=== PATIENT | female | born 1970 | race Native Hawaiian/Other Pacific Islander ===

== ENCOUNTER → 2017-01-08 | Outpatient (CLI) | payer OTHER | LOC: YCFC.O 12:40 | PROVIDERS: ATTEND Nurse Practitioner Family | DX: J02.9 Acute pharyngitis, unspecified (principal) ==

== ENCOUNTER 2017-01-14 19:57 | Emergency (ER) | payer OTHER ==
[2017-01-14 20:19] VITALS: TEMP 99; O2SAT 100
--- NOTE | 2017-01-14 20:24 | ED.PDOC ---
History of Present Illness - General Chief Complaint: Cardiovascular Problem Stated Complaint: elevated B/P Time Seen by Provider: 01/14/17 20:20 Source: patient Exam Limitations: no limitations - History of Present Illness Initial Comments: 46 YO FEMALE WHO REPORTS SUDDEN ONSET OF TRANSIENT MID STERNAL CHEST PRESSURE THAT BEGAN SHORTLY PRIOR TO ARRIVAL IN THE ED. PT REPORTS THAT SHE HAD NOT HAD HER BP MEDS REFILLED AND SUSPECTED THAT MAY BE THE PROBLEM. PT CAME TO THE HOSPITAL TO HAVE BP CHECKED AND IT WAS FOUND TO BE ELEVATED. PT DENIES CHEST PAIN CURRENTLY AND STATES IT LASTED APPROXIMATELY 1 MINUTE. Timing/Duration: resolved prior to arrival Severity/Quality: moderate, pressure Location: substernal Chest Pain Radiation: no radiation Activities at Onset: none Prior Chest Pain/Cardiac Workup: no prior chest pain, no prior cardiac workup Improving Factors: nothing Worsening Factors: nothing Nitro Today/Relief: no nitro taken today Aspirin Treatment Today: no aspirin today Associated Symptoms: denies symptoms Allergies/Adverse Reactions: Allergies NO KNOWN ALLERGY Allergy (Verified 01/14/17 20:18) Home Medications: Ambulatory Orders Amlodipine Besylate 5 mg PO DAILY 01/14/17 Control Pill 1 each PO DAILY 01/14/17 Calcium 600 mg PO DAILY 01/14/17 Cetirizine HCl [ZyrTEC] 10 mg PO DAILY 01/14/17 Cholecalciferol [Vitamin D3] 1,000 unit PO DAILY 01/14/17 Ferrous Sulfate [Iron] 28 mg PO DAILY 01/14/17 Valatie Carbonate 600 mg PO BID 01/14/17 Naproxen [Naprosyn] 500 mg PO DAILY 01/14/17 Review of Systems - Review of Systems Constitutional: Denies: fever, malaise EENTM: Denies: ear pain, throat pain Respiratory: Denies: short of breath, wheezing Cardiology: States: see HPI, chest pain. Denies: palpitations, syncope Gastrointestinal/Abdominal: Denies: abdominal pain, diarrhea, vomiting Genitourinary: Denies: dysuria, frequency Musculoskeletal: Denies: joint pain, joint swelling Skin: Denies: change in color, dryness Neurological: Denies: numbness, paresthesia Endocrine: States: no symptoms reported Hematologic/Lymphatic: States: no symptoms reported Past Medical History (General) - Patient Medical History Hx Seizures: No Hx Stroke: No Hx Dementia: No Hx Asthma: No Hx of COPD: No Hx Cardiac Disorders: No Hx Congestive Heart Failure: No Hx Pacemaker: No Hx Hypertension: Yes Hx Thyroid Disease: No Hx Diabetes: No Hx Gastroesophageal Reflux: No Hx Renal Disease: No Hx Cancer: No Hx of HIV: No Hx Hepatitis C: No Hx MRSA: No Surgical History: no surgical history - Vaccination History Hx Tetanus, Diphtheria Vaccination: No Hx Influenza Vaccination: Yes Hx Pneumococcal Vaccination: No Immunizations Up to Date: No - Social History Hx Tobacco Use: No Hx Chewing Tobacco Use: No Hx Alcohol Use: No Hx Substance Use: No Hx Substance Use Treatment: No Hx Depression: No Feels Threatened In Home Enviroment: No Feels Threatened In a Relationship: No Hx Physical Abuse: No Hx Emotional Abuse: No Hx Suspected Abuse: No - Female History Patient is a Female of Child Bearing Age (10 -59 yrs old): Yes Patient : No Family Medical History - Family History Mother Living Status: Unknown Hx Family Diabetes: Yes Hx Family;Other: Bipolar, Obese Physical Exam - Physical Exam General Appearance: Alert, Comfortable, No apparent distress Neck: normal inspection Respiratory: normal breath sounds, no respiratory distress, no accessory muscle use Cardiovascular/Chest: regular rate, rhythm, no murmur Gastrointestinal/Abdominal: non tender, soft Extremity: normal range of motion, normal inspection Neurologic: alert, normal mood/affect, oriented x 3 Skin Exam: normal color, warm/dry Progress - Progress Progress: 01/14/17 21:00 OLD RECORDS REVIEWED REVEALING NO PREVIOUS ER VISITS. PTS BP NOW 160/92 AFTER 10MG IV LABETALOL. PT RESTING COMFORTABLY WITH NO COMPLAINT OF CHEST PAIN. ADDITIONAL 5MG IV LABETALOL ORDERED. 01/14/17 21:25 PT CONTINUES TO REST COMFORTABLY, LABS DISCUSSED. PT WILL FILL BP MEDS IN THE AM. RECOMMENDED MONITORING OF BP 2 X DAILY AT HOME. PT INFORMED OF ELEVATED BUN/CR WHICH MAY INDICATE KIDNEY INJURY FROM UNCONTROLLED BP. RECOMMENDED FOLLOW UP WITH CHANGE ATTENDANT FOR BASELINE CARDIAC STRESS TESTING. PT AGREES TO FOLLOW UP WITH PCP DOTTIE. 01/14/17 21:30 - Results/Orders Results/Orders: 01/14/17 20:20 IV Care:Saline Lock per Protoc QSHIFT Telemetry .ONCE Sodium Chloride 0.9% (Flush) [Saline Flush Syringe] 10 ml IV PRN PRN EKG Stat Pulse Ox Stat Laboratory Results - last 24 hr 01/14/17 20:35 WBC 10.4 RBC 4.09 L Hgb 12.7 Hct 37.8 MCV 92.3 MCH 31.0 MCHC 33.6 RDW 12.4 Plt Count 200 MPV 9.3 Absolute Neuts (auto) 7.20 H Absolute Lymphs (auto) 2.30 Absolute Monos (auto) 0.60 Absolute Eos (auto) 0.20 Absolute Basos (auto) 0.10 Neutrophils % 69.0 Lymphocytes % 22.3 Monocytes % 5.8 Eosinophils % 2.3 Basophils % 0.6 PT 10.7 INR 0.950 PTT (SP) 28.9 Sodium 139 Potassium 3.9 Chloride 107 Carbon Dioxide 26 Anion Gap 9.9 L BUN 23 H Creatinine 1.76 H BUN/Creatinine Ratio 13.1 Random Glucose 115 H Serum Osmolality 282.1 Calcium 10.0 Magnesium 2.0 Creatine Kinase 65 CK-MB (CK-2) 1.8 CK-MB (CK-2) % Not Reportable Troponin I < 0.02 - EKG/XRAY/CT EKG: Sinus - 62BPM, NL INTERVALS, NL AXIS, NO ST-T WAVE ABNORMALITIES. Comments: NO OLD EKG FOR COMPARISON. XRAY: chest - NO ACTIVE DISEASE PER RAD Departure - Departure Clinical Impression: Chest pain, Uncontrolled hypertension Time of Disposition: 21:29 Disposition: Discharge to Home or Self Care Condition: Good Departure Forms: ED Discharge - Pt. Copy, Patient Portal Self Enrollment Instructions: DI for Malignant Hypertension, DI for Chest Pain Referrals: Chris Campbell MD [Primary Care Provider] - 1-2 Days Home Medications: Ambulatory Orders Amlodipine Besylate 5 mg PO DAILY 01/14/17 Control Pill 1 each PO DAILY 01/14/17 Calcium 600 mg PO DAILY 01/14/17 Cetirizine HCl [ZyrTEC] 10 mg PO DAILY 01/14/17 Cholecalciferol [Vitamin D3] 1,000 unit PO DAILY 01/14/17 Ferrous Sulfate [Iron] 28 mg PO DAILY 01/14/17 Valatie Carbonate 600 mg PO BID 01/14/17 Naproxen [Naprosyn] 500 mg PO DAILY 01/14/17
[2017-01-14] MEDS: ASPIRIN TABLET 325 MG TAB PO ONE (20:32)
[2017-01-14] MEDS: LABETALOL INJ 5 MG/ML VIAL IV ONE ×2 (20:34→21:03)
[2017-01-14] MEDS: NITROGLYCERIN 0.4 MG 25 EA TAB SL ONE (20:35)
[2017-01-14] MEDS: SODIUM CHLORIDE 0.9% (FLUSH) 10 ML SYG IV PRN (20:35)
--- NOTE | 2017-01-14 20:55 | RAD ---
EXAM: Chest,1 View CLINICAL INDICATION: 46-year-old female with chest pain. TECHNIQUE: Single view, AP portable chest was obtained. COMPARISON: 07/29/2014. FINDINGS: Stable cardiac and mediastinal silhouette. Heart size is normal. Lungs are clear without focal opacity, pneumothorax or pleural effusions. The visualized bones are within normal limits. IMPRESSION: No acute cardiopulmonary abnormalities. Electronically signed by: Hafsa Wise MD 01/14/2017 8:55 PM CDT Workstation: [id number]
[2017-01-14 21:46] VITALS: BP 146/70
== END 2017-01-14 21:54 | disposition home or self-care (01) ==
LOC: ER 19:57
DX: R07.9 Chest pain, unspecified (principal); I10 Essential (primary) hypertension; Z79.899 Other long term (current) drug therapy

== ENCOUNTER → 2017-02-26 | Outpatient (CLI) | payer OTHER | LOC: MAMMO 15:30 | PROVIDERS: ATTEND Family Medicine | DX: Z12.31 Encounter for screening mammogram for malignant neoplasm of breast (principal) ==

== ENCOUNTER → 2017-03-06 | Outpatient (CLI) | payer OTHER | LOC: LAB 17:39 | PROVIDERS: ATTEND Family Medicine | DX: I10 Essential (primary) hypertension (principal) ==

== ENCOUNTER → 2018-02-20 | Outpatient (CLI) | payer OTHER | LOC: LAB.O 07:54 | PROVIDERS: ATTEND Nurse Practitioner Acute Care | DX: E34.9 Endocrine disorder, unspecified (principal) ==

== ENCOUNTER → 2018-03-04 | Outpatient (CLI) | payer OTHER ==
--- NOTE | 2018-03-04 12:38 | RAD ---
EXAM DESCRIPTION: Chest,2 Views CLINICAL HISTORY: ESSENTIAL HYPERTENSION COMPARISON: Previous study January 14, 2017 TECHNIQUE: PA/lateral FINDINGS: There is no acute appearing cardiac or pulmonary abnormality. Heart size is normal with normal pulmonary vascularity. No pleural effusion or pneumothorax. Lungs are clear with no consolidating infiltrate. Lateral view shows intact sternum and T-spine. IMPRESSION: No acute process is identified in the chest. Electronically signed by: Mendel Rico MD 03/04/2018 12:37 PM CDT
== END ==
LOC: RAD 11:30
PROVIDERS: ATTEND Family Medicine
DX: I10 Essential (primary) hypertension (principal)

== ENCOUNTER → 2018-12-21 | Outpatient (CLI) | payer BC | LOC: LAB.O 09:35 | PROVIDERS: ATTEND Psychiatry & Neurology Psychiatry | DX: F31.71 Bipolar disorder, in partial remission, most recent episode hypomanic (principal) ==

== ENCOUNTER → 2018-12-23 | Outpatient (CLI) | payer BC ==
--- NOTE | 2018-12-23 17:28 | US ---
EXAM DESCRIPTION: Gall Bladder CLINICAL HISTORY: ABDOMINAL PAIN UNSPECIFIED COMPARISON: None Available. TECHNIQUE: Right upper quadrant ultrasound FINDINGS: Pancreas: Visualized portions of the pancreas are unremarkable. Bowel gas obscures some areas. Aorta/inferior vena cava: No aortic aneurysm. Normal inferior vena cava. Liver: Quadrangular area of slightly decreased echogenicity in the left lobe of the liver is thought to be parenchyma relatively spared from the diffuse fatty infiltration. (Similar findings near the gallbladder). However liver mass cannot be excluded and CT or MRI of the liver might be considered. Alternatively, sono follow-up showing stability over a long period of time would be adequate to exclude a malignant lesion. The liver is otherwise homogeneous in texture with increased echogenicity consistent with diffuse hepatic steatosis. No intrahepatic bile duct dilatation. No liver surface irregularity. Normal appearance of the portal vein and hepatic veins. Gallbladder: Gallbladder appears normal with no intraluminal stones or wall thickening. Common bile duct: Normal caliber measuring 6.0 mm. Right kidney: Renal length is 9.9 cm. Normal cortical echogenicity. Cortical thickness is normal. No hydronephrosis is seen. No renal mass or shadowing calculus. IMPRESSION: Hepatic steatosis with areas of decreased echogenicity near the gallbladder and in the left lobe. See above. Electronically signed by: Mendel Rico MD 12/23/2018 5:26 PM CDT
== END ==
LOC: US 15:05
PROVIDERS: ATTEND Family Medicine
DX: K76.0 Fatty (change of) liver, not elsewhere classified (principal)

== ENCOUNTER → 2018-12-24 | Outpatient (CLI) | payer BC | LOC: GMAM 17:41 | PROVIDERS: ATTEND Family Medicine | DX: R10.9 Unspecified abdominal pain (principal); R79.89 Other specified abnormal findings of blood chemistry ==